=== PATIENT | male | born 1985 | race Caucasian/White ===

== ENCOUNTER 2021-07-21 13:12 | Emergency (ER) | payer BC ==
[~2021-07-21] VITALS: Ht 167.6 cm; Wt 87.4 kg
[2021-07-21] MEDS ORDERED: FLUORESCEIN 1MG EYE STRIP. ONE (13:22)
[2021-07-21] MEDS ORDERED: TETRACAINE 0.5% OPHTH SOLUTION 4ML BOTTLE. ONE (13:22)
[2021-07-21 13:24] VITALS: BP 153/104
[2021-07-21] MEDS ORDERED: DEXAMETHASONE SOD PHOS 10 MG/ML VIAL. IM ONE (13:45)
[2021-07-21] MEDS ORDERED: diphenhydrAMINE 50 MG/ML VIAL IM ONE (13:45)
[2021-07-21] MEDS ORDERED: KETO5DRO89 OS (14:11)
--- NOTE | 2021-07-21 14:13 | PHYS DOC ---
Past History Past Surgical History: No Surgical History (CASPER PAIGE) Smoking: Non-smoker Alcohol Use: None Drug Use: None (CASPER PAIGE) General Adult EDM: Chief Complaint: EYE PROBLEMS HPI: HPI: Patient is a 35 year old male who presents with sudden left eye swelling and irritation. Patient denies pain. He states he was working outside when he felt something go into his eye. He went indoors to rinse his eye, but when he came out his eye was red, swollen and he noticed a "blister" on the lateral aspect in the sclera. Patient denies history of seasonal allergies, any prior eye irritation, changes in visual acuity or visual field deficits. He reports associated itching to the skin of his neck. Patient has no other complaints at this time. (CASPER PAIGE) Review of Systems: Review of Systems: ROS negative except as mentioned in HPI. (CASPER PAIGE) Current Medications: Current Meds: Current Medications Medications (Trade) Dose Ordered Sig/Deepthi Start Time Stop Time Status Last Admin Dose Admin Dexamethasone Sodium Phosphate (Decadron) 10 mg 1X ONCE 07/21/21 13:45 07/21/21 13:46 UNV Diphenhydramine HCl (Benadryl) 50 mg 1X ONCE 07/21/21 13:45 07/21/21 13:46 UNV Fluorescein Sodium (Ful-Soco 1mg) 1 strip STK-MED ONCE 07/21/21 13:22 07/21/21 13:22 DC Tetracaine HCl (Tetracaine) 40 drop STK-MED ONCE 07/21/21 13:22 07/21/21 13:22 DC (CASPER PAIGE) Physical Exam: PE: Constitutional: Well developed, well nourished, no acute distress, non-toxic appearance. HENT: Normocephalic, atraumatic, bilateral external ears normal, oropharynx moist, no oral exudates, no oropharyngeal swelling, nose normal. Eyes: PERRLA, EOMI, periorbital swelling appreciated on the left side with conjunctival injection and watery discharge. Fluorescein stain with Whitehead lamp examination reveals no corneal abrasions or foreign bodies. Neck: Normal range of motion, no tenderness, supple, no stridor. Cardiovascular: Heart rate regular rhythm, no murmur. Lungs & Thorax: Bilateral breath sounds clear to auscultation. (CASPER PAIGE) Current Patient Data: Vital Signs: Vital Signs Date Time Temp Pulse Resp B/P (MAP) Pulse Ox O2 Delivery O2 Flow Rate FiO2 07/21/21 13:24 97.0 96 18 153/104 (120) 99 (CASPER PAIGE) Heart Score: C/O Chest Pain: No (CASPER PAIGE) Course & Med Decision Making: Course & Med Decision Making Pertinent Labs and Imaging studies reviewed. (See chart for details) No foreign body or abrasions noted on exam. Patient history consistent with contact irritation leading to allergic conjunctivitis with chemosis. Patient provided with IM Benadryl and Decadron in the department. He is instructed to continue taking Benadryl 25 mg every 6 hours as needed. Additionally, he will be prescribed antihistamine eyedrops. Patient should return to the emergency department if he develops new symptoms or his symptoms do not resolve. He should also establish care with primary care physician for evaluation of elevated blood pressure reading. Patient understands and is agreeable to discharge plan. (CASPER PAIGE) Dragon Disclaimer: Dragon Disclaimer: This electronic medical record was generated, in whole or in part, using a voice recognition dictation system. (CASPER PAIGE) Attending Co-Sign The patient was seen and interviewed as well as examined at the bedside. The chart was reviewed. The case was discussed. Agree with the plan of care. (RYLEY ALAS DO) Departure Departure: Impression: Primary Impression: Acute allergic conjunctivitis of left eye Additional Impression: Elevated blood pressure reading Disposition: HOME / SELF CARE / HOMELESS Condition: STABLE Referrals: PCP,NO (PCP) TYSON SEVILLA MD Patient Instructions: Allergic Conjunctivitis, Fgri-wh-Ipii Scripts Ketotifen Fumarate (KETOTIFEN FUMARATE) 5 Ml Drops 2 DROP OS PRN Q6HRS PRN for ALLERGIES, #5 ML 0 Refills Prov: CASPER PAIGE 07/21/21 CASPER PAIGE Jul 21, 2021 14:12 RYLEY ALAS DO Jul 22, 2021 19:10
== END 2021-07-21 14:28 | disposition home or self-care (01) ==
LOC: ER 13:12
DX: H10.12 Acute atopic conjunctivitis, left eye (principal); R03.0 Elevated blood-pressure reading, without diagnosis of hypertension
CPT/HCPCS: 99283